=== PATIENT | female | born 1990 | race Caucasian/White ===

== ENCOUNTER → 2024-04-13 13:03 | Outpatient (CLI) | payer OTHER, SELFPAY ==
--- NOTE | 2024-04-13 13:06 | DI.MG.S_ITS ---
BILATERAL DIGITAL DIAGNOSTIC MAMMOGRAM 3D/2D: 04/13/2024 CLINICAL: Right breast mass. Baseline exam. Family History of breast cancer. No prior exams were available for comparison. The breasts are heterogeneously dense, which may obscure small masses (category c / 51-75% glandular tissue). No significant masses, calcifications, or other findings are seen in either breast. Specifically, no finding to correspond to the patient's right upper outer quadrant palpable abnormality. There is focally dense tissue in the quadrant. A possible focal asymmetry in the upper outer left breast dissapates with focal spot compression and is consistent with glandular tissue. IMPRESSION: INCOMPLETE: NEED ADDITIONAL IMAGING EVALUATION There is no definite abnormality seen in the right breast to correspond with the palpable abnormality in the upper outer quadrant which likely represents normal fibroglandular tissue. Ultrasound is recommended for full evaluation of this area. This was performed immediately following this exam. Left breast mammogram is negative. Based on Tyrer-Cuzick model (a risk assessment model), the patient's lifetime risk is 21.9% and her 10 year risk is 1.3%. If a patient has an elevated risk, a more comprehensive evaluation should be considered and/or a referral to a genetic counselor. The [employer], [employer], and NCCN Guidelines advise the consideration of Breast MRI as an adjunct to screening mammography in patients whose Lifetime risk to develop breast cancer is 20% or higher. This exam was interpreted at Station ID: [id number]. NOTE: For mammograms, a report in lay terms will be sent to the patient. Approximately 15% of breast malignancies will not be visualized mammographically. In the management of a palpable breast mass, a negative mammogram must not discourage biopsy of a clinically suspicious lesion. Electronically Signed By: Ana beckham/:04/13/2024 15:09:30 letter sent: Additional Imaging Needed ACR BI-RADS Category 0: Incomplete: Need Additional Imaging Evaluation
--- NOTE | 2024-04-13 13:06 | DI.US.S_ITS ---
ULTRASOUND OF RIGHT BREAST: 04/13/2024 CLINICAL: Palpable right breast lump by physician. Comparison is made to exam dated: 04/13/2024 mammogram - [facility]. Color flow ultrasound of the right breast was performed. Jensen scale images of the real-time examination were reviewed. There is a 3 mm hypoechoic focus, probably a cyst, in the right breast at 11 o'clock middle depth. This displays posterior acoustic enhancement, but is too small to otherwise characterize. This correlates as an incidental finding. Color flow imaging demonstrates that there is no vascularity present. No sonographic finding to correspond to any other palpable abnormality in the 11:00 area. IMPRESSION: PROBABLY BENIGN The 3 mm incidental, probable cyst in the right breast is probably benign. There is no other definite abnormality seen in the right breast to correspond with the palpable abnormality in the upper outer quadrant which is probably dense normal fibroglandular tissue. A follow-up right ultrasound in 6 months is recommended to demonstrate stability of the incidental finding. Findings and recommendations were conveyed to the patient at time of exam. This exam was interpreted at Station ID: [id number]. Electronically Signed By: Ana beckham/:04/13/2024 15:55:45 letter sent: Followup Recommended ACR BI-RADS Category 3: Probably Benign
== END ==
PROVIDERS: PCP Internal Medicine; Referring Provider Internal Medicine; Visit Provider Internal Medicine
DX: N63.11 Unspecified lump in the right breast, upper outer quadrant (principal); R92.2 Inconclusive mammogram; R92.333 Mammographic heterogeneous density, bilateral breasts; Z80.3 Family history of malignant neoplasm of breast
CPT/HCPCS: 76642; 77066; G0279

== ENCOUNTER → 2024-12-18 10:38 | Outpatient (CLI) | payer OTHER, SELFPAY ==
--- NOTE | 2024-12-18 10:39 | DI.US.S_ITS ---
US breast RT limited: 12/18/2024. BI-RADS: 3 CLINICAL: 34-year old female for right diagnostic breast ultrasound that is a follow-up to ultrasound, right on 04/13/2024. Tyrer-Cuzick lifetime risk of 12.3%. No personal or first-degree family history of breast cancer. PRIOR EXAMS 04/13/2024. ULTRASOUND TECHNIQUE: Real-time soriano scale and color doppler imaging of the area of clinical interest was performed with image documentation. TARGETED Right Breast Ultrasound: Real-time ultrasound exam was performed focused to area of clinical and/or imaging concern. ULTRASOUND FINDINGS Right: Upper Outer at 10:30, 5 cm from nipple, measuring 0.3 x 0.2 x 0.2 cm: There is a complicated cyst present. Doppler shows no vascularity. Based on the surrounding tissue architecture, this correlates to the prior imaging finding that was previously reported at 11 o'clock 3 cm from the nipple. Right: Upper at 11:00, 3 cm from nipple: No suspicious sonographic finding present. IMPRESSION: Right (Complicated Cyst): Upper Outer at 10:30, 5 cm from nipple, measuring 0.3 x 0.2 x 0.2 cm * Probably Benign. RECOMMENDATIONS Right: Upper Outer at 10:30, 5 cm from nipple * Six month followup with diagnostic ultrasound. COMMENTS: Findings and recommendations were conveyed to the patient during today's evaluation. OVERALL ASSESSMENT CATEGORY BI-RADS-3: Probably Benign. ELECTRONICALLY SIGNED: Gladis Streeter M.D. on 12/18/2024 at 09:57:57 PM PT Interpreting Station ID: [id number]
== END ==
LOC: US 10:38
PROVIDERS: PCP Registered Nurse; Referring Provider Registered Nurse; Visit Provider Registered Nurse
DX: R92.8 Other abnormal and inconclusive findings on diagnostic imaging of breast (principal); N63.11 Unspecified lump in the right breast, upper outer quadrant; N60.01 Solitary cyst of right breast
CPT/HCPCS: 76642